=== PATIENT | male | born 1995 | race Caucasian/White ===

== ENCOUNTER 2019-01-14 16:23 | Emergency (ER) | payer OTHER ==
[~2019-01-14] VITALS: Ht 162.6 cm; Wt 63.5 kg
== END 2019-01-14 20:54 | disposition home or self-care (01) ==
LOC: ER 16:23
DX: M79.644 Pain in right finger(s) (principal); S60.051S Contusion of right little finger without damage to nail, sequela; W22.8XXS Striking against or struck by other objects, sequela